=== PATIENT | male | born 1970 | race African-American/Black ===

== ENCOUNTER 2017-01-16 09:36 | Inpatient (IN) | payer MEDICAID ==
[~2017-01-16] VITALS: Ht 188 cm; Wt 90.0 kg
[2017-01-16 09:55] LABS: EOSINOPHILS % (AUTO) 4.8 % (1.0-6.0); HEMATOCRIT 36.4 % (41-53); HEMOGLOBIN 12.2 g/dL (13.5-17.5); LYMPHOCYTES # (AUTO) 1.3 K/uL (1.0-4.8); LYMPHOCYTES % (AUTO) 20.9 % (22.0-44.0); MEAN CORPUSCULAR HEMOGLOBIN 31.1 pg (26.0-34.0); MEAN CORPUSCULAR HGB CONC 33.6 G/dL (31.0-37.0); MEAN CORPUSCULAR VOLUME 93 fL (80-100); MONOCYTES # (AUTO) 0.3 K/uL (0.1-1.0); MONOCYTES % (AUTO) 4.7 % (2.0-9.0); NEUTROPHILS # (AUTO) 4.3 K/uL (1.8-7.7); NEUTROPHILS % (AUTO) 69.6 % (40.0-70.0); PLATELET COUNT (AUTO) 215 K/uL (150-450); RED BLOOD CELL COUNT(AUTO) 3.92 MIL/uL (4.50-5.90); RED CELL DISTRIBUTION WIDTH 20.5 % (11.5-14.5); WHITE BLOOD COUNT (AUTO) 6.1 K/uL (4.5-11.0)
[2017-01-16 10:06] LABS: INR 1.2 (0.9-1.1); PROTHROMBIN TIME 12.7 SEC (9.4-11.6)
[2017-01-16 10:07] LABS: ANION GAP 15 mmol/L (8-16); CARBON DIOXIDE 23 mmol/L (22-29); CHLORIDE 95 mmol/L (98-107); CREATININE 1.21 mg/dL (0.60-1.30); GLOMERULAR FILTR. RATE CALC > 60 mL/min (>60); POTASSIUM 4.5 mmol/L (3.5-5.1); SODIUM SERUM 133 mmol/L (136-145); UREA NITROGEN, BLOOD 7 mg/dL (7-18)
[2017-01-16] MEDS ORDERED: LEVO100 PO (10:09)
[2017-01-16 10:13] LABS: ALANINE AMINOTRANSFERASE 149 U/L (12-78); ASPARTATE AMINOTRANSFERASE 431 U/L (15-37); BILIRUBIN,TOTAL 1.1 mg/dL (0.1-1.0); TOTAL PROTEIN, SERUM 8.4 g/dL (6.4-8.2)
[2017-01-16 10:16] LABS: B-TYPE NATRIURETIC PEPTIDE 128 pg/mL (0-100)
[2017-01-16 10:25] LABS: RBC MORPHOLOGY COMMENT ABNORMAL RBC MORPH
[2017-01-16 11:14] LABS: THYROID STIMULATING HORMONE 60.79 uIU/mL (0.36-3.74)
[2017-01-16] MEDS ORDERED: ONDANSETRON HCL 4 MG/2 ML VIAL IVP PRN (11:15)
[2017-01-16] MEDS ORDERED: 0.9% SODIUM CHLORIDE 10 ML SYRINGE IVP PRN (11:15)
[2017-01-16] MEDS ORDERED: DIGOXIN 250 MCG/ML 2 ML AMP IVP ONE (11:30)
[2017-01-16 12:29] LABS: APPEARANCE,URINE CLEAR (CLEAR); GLUCOSE, URINE (UA) NEGATIVE (NEGATIVE); KETONES,URINE 15 mg/dL (NEGATIVE); LEUKOCYTE ESTERASE ,URINE NEGATIVE (NEGATIVE); OCCULT BLOOD,URINE NEGATIVE (NEGATIVE); PROTEIN,URINE TRACE (NEGATIVE)
[2017-01-16 12:30] LABS: ADD UA MICROSCOPIC YES
[2017-01-16] MEDS: METOPROLOL SUCCINATE 25 MG ER TABLET PO SCH ×3 (12:37→21:00)
[2017-01-16] MEDS: ASPIRIN 81 MG EC TABLET PO SCH ×2 (12:37→12:40)
[2017-01-16 12:38] LABS: RBC,URINE None Seen /HPF (0-2); SQUAMOUS EPITHELIAL CELL,UR Few /LPF (None Seen)
[2017-01-16 15:38] VITALS: BP 128/58
[2017-01-16] MEDS: ACETAMINOPHEN 325 MG TABLET PO PRN ×2 (18:19→18:21)
[2017-01-16 19:26] VITALS: BP 105/62
[2017-01-16 23:54] VITALS: BP 94/57
[2017-01-17 05:01] VITALS: BP 110/72
[2017-01-17 06:14] LABS: BASOPHILS % (AUTO) 0.1 % (0.0-2.0); EOSINOPHILS % (AUTO) 2.8 % (1.0-6.0); HEMATOCRIT 33.6 % (41-53); HEMOGLOBIN 11.4 g/dL (13.5-17.5); LYMPHOCYTES # (AUTO) 1.9 K/uL (1.0-4.8); LYMPHOCYTES % (AUTO) 27.6 % (22.0-44.0); MEAN CORPUSCULAR HEMOGLOBIN 31.7 pg (26.0-34.0); MEAN CORPUSCULAR HGB CONC 33.8 G/dL (31.0-37.0); MEAN CORPUSCULAR VOLUME 94 fL (80-100); MONOCYTES # (AUTO) 0.5 K/uL (0.1-1.0); MONOCYTES % (AUTO) 6.7 % (2.0-9.0); NEUTROPHILS # (AUTO) 4.4 K/uL (1.8-7.7); NEUTROPHILS % (AUTO) 62.8 % (40.0-70.0); PLATELET COUNT (AUTO) 185 K/uL (150-450); RED BLOOD CELL COUNT(AUTO) 3.58 MIL/uL (4.50-5.90); RED CELL DISTRIBUTION WIDTH 19.3 % (11.5-14.5); WHITE BLOOD COUNT (AUTO) 7.1 K/uL (4.5-11.0)
[2017-01-17 07:06] LABS: ALANINE AMINOTRANSFERASE 116 U/L (12-78); ALBUMIN 3.6 g/dL (3.4-5.0); ANION GAP 9 mmol/L (8-16); ASPARTATE AMINOTRANSFERASE 330 U/L (15-37); BILIRUBIN,TOTAL 0.6 mg/dL (0.1-1.0); CALCIUM, TOTAL 8.9 mg/dL (8.8-10.5); CARBON DIOXIDE 26 mmol/L (22-29); CHLORIDE 94 mmol/L (98-107); CREATININE 1.08 mg/dL (0.60-1.30); GLOMERULAR FILTR. RATE CALC > 60 mL/min (>60); POTASSIUM 4.5 mmol/L (3.5-5.1); SODIUM SERUM 129 mmol/L (136-145); TOTAL PROTEIN, SERUM 7.5 g/dL (6.4-8.2); UREA NITROGEN, BLOOD 9 mg/dL (7-18)
[2017-01-17 08:49] VITALS: BP 107/61
[2017-01-17] MEDS ORDERED: MAGNESIUM OXIDE 400 MG TABLET PO ONE (09:00)
[2017-01-17 09:14] LABS: HEPATITIS Bs ANTIGEN SCREEN P Negative (Negative); HEPATITIS C AB SCREEN <0.1 s/co ratio (0.0-0.9)
[2017-01-17] MEDS: METOPROLOL SUCCINATE 25 MG ER TABLET PO SCH ×2 (09:14→20:14)
[2017-01-17] MEDS: ACETAMINOPHEN 500 MG TABLET PO PRN ×2 (09:14→13:54)
[2017-01-17] MEDS: ASPIRIN 81 MG EC TABLET PO SCH (09:14)
[2017-01-17 10:33] LABS: RBC MORPHOLOGY COMMENT ABNORMAL RBC MORPH
[2017-01-17 11:36] VITALS: BP 102/61
[2017-01-17] MEDS ORDERED: ONDANSETRON HCL 4 MG/2 ML VIAL IVP PRN (14:30)
[2017-01-17] MEDS ORDERED: HYDROCODONE/ACETAMINOPHEN 5-325 MG TABLET PO PRN (14:30)
[2017-01-17] MEDS ORDERED: MORPHINE SULFATE 2 MG/ML SYRINGE IVP PRN (14:30)
[2017-01-17] MEDS ORDERED: BISACODYL 10 MG RECTAL RECTAL SUPPOSITORY PR PRN (14:30)
[2017-01-17] MEDS ORDERED: ACETAMINOPHEN 325 MG TABLET PO PRN (14:30)
[2017-01-17] MEDS ORDERED: IPRATROPIUM BROMIDE 0.5 MG/2.5 ML NEB SOLUTION NEB PRN (14:30)
[2017-01-17] MEDS ORDERED: ALBUTEROL SULFATE 2.5 MG/0.5 ML NEB SOLUTION NEB PRN (14:30)
[2017-01-17] MEDS ORDERED: MAGNESIUM HYDROXIDE SUSPENSION 30 ML UDCUP PO PRN (14:30)
[2017-01-17 16:07] VITALS: BP 103/63
[2017-01-17] MEDS: HEPARIN SODIUM,PORCINE 5,000 UNITS/ML VIAL SQ SCH ×2 (17:46→23:31)
[2017-01-17 20:00] VITALS: BP 100/62
[2017-01-17] MEDS: DOCUSATE SODIUM 100 MG CAPSULE PO SCH (20:11)
[2017-01-17 23:39] VITALS: BP 121/76
[2017-01-17] MEDS ORDERED: BARIUM SULFATE 0.1% SUSPENSION 450 ML BOTTLE ONE ×2 (23:40→23:41)
[2017-01-18] MEDS: ZOLPIDEM TARTRATE 5 MG TABLET PO PRN ×2 (00:03→23:30)
[2017-01-18 04:17] VITALS: BP 108/72
[2017-01-18] MEDS ORDERED: IOVERSOL 350 MG/ML 150 ML VIAL ONE (04:38)
[2017-01-18] MEDS ORDERED: SODIUM CHLORIDE 0.9% 100 ML ONE (04:38)
[2017-01-18 06:52] LABS: BASOPHILS # (AUTO) 0.03 K/uL (0.00-0.20); BASOPHILS % (AUTO) 0.5 % (0.0-2.0); EOSINOPHILS # (AUTO) 0.26 K/uL (0.00-0.70); EOSINOPHILS % (AUTO) 4.12 % (1.0-6.0); HEMOGLOBIN 11.3 g/dL (13.5-17.5); LYMPHOCYTES # (AUTO) 1.6 K/uL (1.0-4.8); LYMPHOCYTES % (AUTO) 24.5 % (22.0-44.0); MEAN CORPUSCULAR HEMOGLOBIN 31.2 pg (26.0-34.0); MEAN CORPUSCULAR HGB CONC 33.4 G/dL (31.0-37.0); MEAN CORPUSCULAR VOLUME 93 fL (80-100); MONOCYTES # (AUTO) 0.4 K/uL (0.1-1.0); MONOCYTES % (AUTO) 5.8 % (2.0-9.0); NEUTROPHILS # (AUTO) 4.1 K/uL (1.8-7.7); NEUTROPHILS % (AUTO) 65.1 % (40.0-70.0); PLATELET COUNT (AUTO) 167 K/uL (150-450); RED BLOOD CELL COUNT(AUTO) 3.64 MIL/uL (4.50-5.90); RED CELL DISTRIBUTION WIDTH 19.5 % (11.5-14.5); WHITE BLOOD COUNT (AUTO) 6.3 K/uL (4.5-11.0)
[2017-01-18 07:27] VITALS: BP 105/73
[2017-01-18 07:27] LABS: ALANINE AMINOTRANSFERASE 119 U/L (12-78); ALBUMIN 3.5 g/dL (3.4-5.0); ANION GAP 11 mmol/L (8-16); ASPARTATE AMINOTRANSFERASE 339 U/L (15-37); BILIRUBIN,TOTAL 0.3 mg/dL (0.1-1.0); CALCIUM, TOTAL 8.5 mg/dL (8.8-10.5); CARBON DIOXIDE 24 mmol/L (22-29); CHLORIDE 89 mmol/L (98-107); CREATININE 0.98 mg/dL (0.60-1.30); GLOMERULAR FILTR. RATE CALC > 60 mL/min (>60); POTASSIUM 3.7 mmol/L (3.5-5.1); TOTAL PROTEIN, SERUM 7.3 g/dL (6.4-8.2); UREA NITROGEN, BLOOD 6 mg/dL (7-18)
[2017-01-18 07:43] LABS: SODIUM SERUM 124 mmol/L (136-145)
[2017-01-18] MEDS: HEPARIN SODIUM,PORCINE 5,000 UNITS/ML VIAL SQ SCH ×3 (08:00→23:30)
[2017-01-18] MEDS: METOPROLOL SUCCINATE 25 MG ER TABLET PO SCH ×2 (09:00→20:28)
[2017-01-18] MEDS: DOCUSATE SODIUM 100 MG CAPSULE PO SCH ×2 (09:02→20:28)
[2017-01-18] MEDS: PANTOPRAZOLE SODIUM 40 MG/VIAL IVP SCH (09:02)
[2017-01-18] MEDS: ASPIRIN 81 MG EC TABLET PO SCH (09:02)
[2017-01-18 10:17] LABS: RBC MORPHOLOGY COMMENT ABNORMAL RBC MORPH
[2017-01-18] MEDS: LEVOTHYROXINE SODIUM 125 MCG TABLET PO SCH (11:52)
[2017-01-18 11:53] VITALS: BP 109/60
[2017-01-18 15:32] VITALS: BP 95/61
[2017-01-18 20:07] VITALS: BP 100/63
[2017-01-18 23:30] VITALS: BP 99/72
[2017-01-19] MEDS: LEVOTHYROXINE SODIUM 125 MCG TABLET PO SCH (06:30)
[2017-01-19 07:32] VITALS: BP 109/56
[2017-01-19] MEDS: ASPIRIN 81 MG EC TABLET PO SCH (08:38)
[2017-01-19] MEDS: PANTOPRAZOLE SODIUM 40 MG/VIAL IVP SCH (08:38)
[2017-01-19] MEDS: HEPARIN SODIUM,PORCINE 5,000 UNITS/ML VIAL SQ SCH ×2 (08:38→16:00)
[2017-01-19] MEDS: DOCUSATE SODIUM 100 MG CAPSULE PO SCH (08:39)
[2017-01-19] MEDS: METOPROLOL SUCCINATE 25 MG ER TABLET PO SCH (08:39)
[2017-01-19 10:22] LABS: ALANINE AMINOTRANSFERASE 97 U/L (12-78); ALBUMIN 3.4 g/dL (3.4-5.0); ANION GAP 6 mmol/L (8-16); ASPARTATE AMINOTRANSFERASE 204 U/L (15-37); BILIRUBIN,TOTAL 0.3 mg/dL (0.1-1.0); CALCIUM, TOTAL 8.8 mg/dL (8.8-10.5); CARBON DIOXIDE 29 mmol/L (22-29); CHLORIDE 94 mmol/L (98-107); GLOMERULAR FILTR. RATE CALC > 60 mL/min (>60); POTASSIUM 3.9 mmol/L (3.5-5.1); SODIUM SERUM 129 mmol/L (136-145); TOTAL PROTEIN, SERUM 7.1 g/dL (6.4-8.2); UREA NITROGEN, BLOOD 7 mg/dL (7-18)
[2017-01-19 11:14] VITALS: BP 98/56
[2017-01-19 15:18] VITALS: BP 101/58
[2017-01-19] MEDS ORDERED: MAGNESIUM SULFATE 2 GM in DEXTROSE 5%-WATER 50 ML IV ONE (16:15)
[2017-01-19] MEDS ORDERED: MAGNESIUM OXIDE 400 MG TABLET PO ONE (16:30)
[2017-01-19] MEDS ORDERED: METO25XL PO (16:42)
[2017-01-19] MEDS ORDERED: ASPI-1182 PO (16:43)
== END 2017-01-19 18:30 | disposition home or self-care (01) | DRG 201 ==
LOC: EMS 09:36 → ICU 11:09 → 5S 14:02
PROVIDERS: ADMIT Internal Medicine; ATTEND Hospitalist
DX: I47.1 Supraventricular tachycardia (principal); K75.9 Inflammatory liver disease, unspecified; E87.1 Hypo-osmolality and hyponatremia; R07.89 Other chest pain; E03.9 Hypothyroidism, unspecified; I42.2 Other hypertrophic cardiomyopathy; F10.20 Alcohol dependence, uncomplicated; Z91.19 Patient's noncompliance with other medical treatment and regimen; Z59.0 Homelessness; Z82.49 Family history of ischemic heart disease and other diseases of the circulatory system; Z79.899 Other long term (current) drug therapy
CPT/HCPCS: 71260; 72193; 74160; 80074; 80307; 83735; 83930; 83935; 84300; 84443; 93005; 93306; 99285; C9113; J1160; J1644; J3475; J7050; J7060

== ENCOUNTER 2018-07-23 19:03 | Emergency (ER) | payer MEDICAID ==
[~2018-07-23] VITALS: Ht 188 cm; Wt 86.2 kg
[~2018-07-23 19:03] MED LIST: ASPI-1182 PO; LEVO100 PO; METO25XL PO
[2018-07-23 20:31] LABS: BASOPHILS % (AUTO) 0.7 % (0.0-2.0); EOSINOPHILS % (AUTO) 1.1 % (1.0-6.0); HEMATOCRIT 39.5 % (41-53); HEMOGLOBIN 13.3 g/dL (13.5-17.5); LYMPHOCYTES # (AUTO) 3.1 K/uL (1.0-4.8); LYMPHOCYTES % (AUTO) 39.2 % (22.0-44.0); MEAN CORPUSCULAR HEMOGLOBIN 30.6 pg (26.0-34.0); MEAN CORPUSCULAR HGB CONC 33.7 G/dL (31.0-37.0); MEAN CORPUSCULAR VOLUME 91 fL (80-100); MONOCYTES # (AUTO) 0.5 K/uL (0.1-1.0); MONOCYTES % (AUTO) 6.8 % (2.0-9.0); NEUTROPHILS # (AUTO) 4.2 K/uL (1.8-7.7); NEUTROPHILS % (AUTO) 52.2 % (40.0-70.0); PLATELET COUNT (AUTO) 153 K/uL (150-450); RED BLOOD CELL COUNT(AUTO) 4.35 MIL/uL (4.50-5.90)
[2018-07-23 20:41] LABS: ANION GAP 19 mmol/L (8-16); CALCIUM, TOTAL 8.8 mg/dL (8.8-10.5); CARBON DIOXIDE 20 mmol/L (22-29); CHLORIDE 100 mmol/L (98-107); CREATININE 1.01 mg/dL (0.60-1.30); GLOMERULAR FILTR. RATE CALC > 60 mL/min (>60); GLUCOSE,RANDOM 88 mg/dL (70-110); POTASSIUM 3.9 mmol/L (3.5-5.1); SODIUM SERUM 139 mmol/L (136-145); UREA NITROGEN, BLOOD 9 mg/dL (7-18)
[2018-07-23 20:43] LABS: PROTHROMBIN TIME 10.4 SEC (9.4-11.6)
[2018-07-23 20:48] LABS: ALANINE AMINOTRANSFERASE 152 U/L (12-78); ALKALINE PHOSPHATASE 88 U/L (46-116); ASPARTATE AMINOTRANSFERASE 336 U/L (15-37); BILIRUBIN,TOTAL 0.2 mg/dL (0.1-1.0); LIPASE 360 U/L (73-393)
[2018-07-23] MEDS: SODIUM CHLORIDE 0.9% 1,000 ML IV ONE (21:32)
[2018-07-23] MEDS: KETOROLAC TROMETHAMINE 30 MG/ML VIAL IVP ONE (21:33)
[2018-07-23] MEDS: ONDANSETRON HCL 4 MG/2 ML VIAL IVP ONE (21:33)
[2018-07-23 22:10] LABS: APPEARANCE,URINE CLEAR (CLEAR); BILIRUBIN,URINE NEGATIVE (NEGATIVE); GLUCOSE, URINE (UA) NEGATIVE (NEGATIVE); KETONES,URINE NEGATIVE (NEGATIVE); LEUKOCYTE ESTERASE ,URINE NEGATIVE (NEGATIVE); NITRATE,URINE NEGATIVE (NEGATIVE); OCCULT BLOOD,URINE NEGATIVE (NEGATIVE); PROTEIN,URINE NEGATIVE (NEGATIVE); UROBILINOGEN,URINE 0.2 mg/dL (<=1.0)
[2018-07-23] MEDS: PANTOPRAZOLE SODIUM 40 MG/VIAL IVP ONE (22:54)
[2018-07-24 05:42] VITALS: BP 115/72
== END 2018-07-24 06:23 | disposition home or self-care (01) ==
LOC: EMS 19:05
DX: F10.129 Alcohol abuse with intoxication, unspecified (principal); R10.13 Epigastric pain; E03.9 Hypothyroidism, unspecified; F17.210 Nicotine dependence, cigarettes, uncomplicated; Y90.8 Blood alcohol level of 240 mg/100 ml or more
CPT/HCPCS: 36415; 74176; 80053; 81003; 83690; 85025; 85610; 85730; 93005; 96361; 96374; 96375; 99285; C9113; G0480; J1885; J2405; J7030

== ENCOUNTER 2018-08-11 20:08 | Emergency (ER) | payer MEDICAID ==
[~2018-08-11] VITALS: Ht 188 cm; Wt 94.1 kg
[~2018-08-11 20:08] MED LIST changes: -ASPI-1182 PO; -METO25XL PO
[2018-08-11 20:24] LABS: GLUCOSE,POINT OF CARE 113 MG/DL (70-110)
[2018-08-11] MEDS ORDERED: LORazepam 2 MG/ML VIAL IVP ONE (20:30)
[2018-08-11] MEDS ORDERED: SODIUM CHLORIDE 0.9% 1,000 ML IV ONE (20:30)
[2018-08-11 20:48] LABS: BASOPHILS % (AUTO) 1.2 % (0.0-2.0); EOSINOPHILS % (AUTO) 1.1 % (1.0-6.0); HEMATOCRIT 42.6 % (41-53); HEMOGLOBIN 14.6 g/dL (13.5-17.5); LYMPHOCYTES % (AUTO) 28.8 % (22.0-44.0); MEAN CORPUSCULAR HEMOGLOBIN 31.6 pg (26.0-34.0); MEAN CORPUSCULAR HGB CONC 34.2 G/dL (31.0-37.0); MEAN CORPUSCULAR VOLUME 93 fL (80-100); MONOCYTES # (AUTO) 0.8 K/uL (0.1-1.0); MONOCYTES % (AUTO) 10.9 % (2.0-9.0); NEUTROPHILS # (AUTO) 4.1 K/uL (1.8-7.7); PLATELET COUNT (AUTO) 238 K/uL (150-450); RED BLOOD CELL COUNT(AUTO) 4.61 MIL/uL (4.50-5.90); RED CELL DISTRIBUTION WIDTH 18.9 % (11.5-14.5)
[2018-08-11 20:55] LABS: ANION GAP 17 mmol/L (8-16); CALCIUM, TOTAL 9.6 mg/dL (8.8-10.5); CARBON DIOXIDE 23 mmol/L (22-29); CHLORIDE 87 mmol/L (98-107); CREATININE 0.96 mg/dL (0.60-1.30); GLOMERULAR FILTR. RATE CALC > 60 mL/min (>60); GLUCOSE,RANDOM 128 mg/dL (70-110); POTASSIUM 3.9 mmol/L (3.5-5.1); SODIUM SERUM 127 mmol/L (136-145); UREA NITROGEN, BLOOD 7 mg/dL (7-18)
[2018-08-11] MEDS ORDERED: PB/HYOSCY/ATR/SCOP/LIDO/MAALOX 55 ML BOTTLE PO ONE (21:00)
[2018-08-11 21:01] LABS: ALANINE AMINOTRANSFERASE 84 U/L (12-78); ALBUMIN 4.4 g/dL (3.4-5.0); ALKALINE PHOSPHATASE 100 U/L (46-116); ASPARTATE AMINOTRANSFERASE 140 U/L (15-37); BILIRUBIN,TOTAL 0.7 mg/dL (0.1-1.0); LIPASE 395 U/L (73-393); TOTAL PROTEIN, SERUM 8.9 g/dL (6.4-8.2)
[2018-08-11 21:29] LABS: APPEARANCE,URINE CLEAR (CLEAR); BILIRUBIN,URINE NEGATIVE (NEGATIVE); GLUCOSE, URINE (UA) NEGATIVE (NEGATIVE); KETONES,URINE 15 mg/dL (NEGATIVE); LEUKOCYTE ESTERASE ,URINE NEGATIVE (NEGATIVE); NITRATE,URINE NEGATIVE (NEGATIVE); OCCULT BLOOD,URINE NEGATIVE (NEGATIVE); PROTEIN,URINE TRACE (NEGATIVE)
[2018-08-11] MEDS ORDERED: KETOROLAC TROMETHAMINE 30 MG/ML VIAL IVP ONE (22:15)
[2018-08-11] MEDS ORDERED: LEVOTHYROXINE SODIUM 75 MCG TABLET PO ONE (22:15)
[2018-08-11] MEDS ORDERED: FAMOTIDINE 10 MG/ML 2 ML VIAL IVP ONE (22:15)
[2018-08-11 22:30] VITALS: BP 134/88
== END 2018-08-11 22:42 | disposition home or self-care (01) ==
LOC: EMS 20:09
DX: F10.239 Alcohol dependence with withdrawal, unspecified (principal); R10.84 Generalized abdominal pain; E03.9 Hypothyroidism, unspecified; F17.210 Nicotine dependence, cigarettes, uncomplicated; Y90.0 Blood alcohol level of less than 20 mg/100 ml
CPT/HCPCS: 36415; 74176; 80053; 81003; 82962; 83690; 84484; 85025; 96374; 96375; 99285; G0480; J1885; J2060; J3490; J7030

== ENCOUNTER 2020-03-29 20:19 | Emergency (ER) | payer MEDICAID ==
[~2020-03-29] VITALS: Ht 185.4 cm; Wt 93.2 kg
[2020-03-29 20:34] VITALS: BP 143/75
== END 2020-03-29 21:40 | disposition left against medical advice (07) ==
LOC: EMS 20:28
DX: M79.603 Pain in arm, unspecified (principal); Z53.21 Procedure and treatment not carried out due to patient leaving prior to being seen by health care provider